=== PATIENT | male | born 1975 | race Caucasian/White ===

== ENCOUNTER 2023-04-27 10:23 | Outpatient (CLI) | payer BC, SELFPAY ==
--- NOTE | ~2023-04-27 | XR_ITS ---
Right elbow Technique: AP, oblique, and lateral views were obtained. Clinical History: Pain Findings: No acute fracture or dislocation is seen. Osseous alignment is anatomic. Joint spaces are p reserved. There is no displacement of the fat pads, and soft tissues are unremarkable. Impression: Unremarkable radiographs. Reviewed, dictated and finalized at [facility]. AGE SECURITY CHECKER Impression: Unremarkable radiographs.
== END 2023-04-27 10:24 | disposition home or self-care (01) ==
PROVIDERS: Visit Provider Orthopaedic Surgery
DX: M25.521 Pain in right elbow (principal)
CPT/HCPCS: 73080

== ENCOUNTER 2023-05-30 08:44 | Outpatient (CLI) | payer BC, SELFPAY ==
--- NOTE | 2023-05-30 10:00 | NEURO_ITS ---
Report of EMG and nerve conduction study on right upper limb Clinical note: The patient is 47 years old with history of paresthesias in the right upper limb. No history of diabetes mellitus. No history of recent major trauma. On brief neurological examination no focal muscle wasting or weakness or fasciculations are seen in right upper limb. Summary of findings: 1. Right median palmar sensory distal latency was normal however mildly prolonged compared to right ulnar palmar sensory distal latency. Right median and ulnar digital and right radial sensory distal latencies and amplitudes were within acceptable normal limits. 2. Right median motor distal latency amplitude and conduction velocity were within acceptable normal limits. 3. Right ulnar motor distal latency amplitude and conduction velocity were within acceptable normal limits. 4. Right median and ulnar motor studies were also performed while recording over the 2nd lumbrical and interossei. Motor latencies were comparable and within normal limits. 5. EMG examination was performed using a monopolar electrode. Various muscles examined in the right upper limb in C5-T1 distribution. No denervation changes were seen. motor unit recruitment was within acceptable normal limits. Impression: EMG and nerve study of the upper limbs raise possibility of minimal right carpal tunnel syndrome. Right median palmar sensory distal latency was borderline prolonged compared to right ulnar palmar distal latency. Remainder of the findings are within normal limits. Please feel free to call me if you have any questions with regard to study. Dorene Chapin MD, FAAN, FAANEM Neurologist Nerve Conduction Studies Anti Sensory Summary Table Stim Site NR Peak (ms) P-T Amp (?V) Site1 Site2 Delta-P (ms) Dist (mm) Dale (m/s) Right Median Anti Sensory (2 Digit) Wrist 3.7 33.7 Wrist 2 Digit 3.7 155 42 Wrist 2 Digit 3.7 0 Right Radial Anti Sensory (Base 1st Digit) Wrist 1.7 42.0 Wrist Base 1st Digit 1.7 0 Right Ulnar Anti Sensory (5th Digit) Wrist 3.3 17.7 Wrist 5th Digit 3.3 140 42 Motor Summary Table Stim Site NR Onset (ms) O-P Amp (mV) Site1 Site2 Delta-0 (ms) Dist (mm) Dale (m/s) Right Median Motor (Abd Poll Brev) Wrist 4.2 6.6 Wrist Elbow 4.2 245 58 Elbow 8.4 5.2 Wrist 3.2 1.2 Right Ulnar Motor (Abd Dig Minimi) Wrist 2.8 5.6 B Elbow Wrist 3.7 230 62 B Elbow 6.5 5.3 A Elbow B Elbow 1.5 75 50 A Elbow 8.0 5.3 Right Ulnar Motor Run #2 (interossei-2) Wrist 3.2 2.9 Comparison Summary Table Stim Site NR Peak (ms) P-T Amp (?V) Site1 Site2 Dale (m/s) Dist (mm) Right Median/Ulnar Palm Comparison Run #2 (Wrist - 8cm) Median Palm 2.1 50.5 Median Palm Wrist - 8cm 38 80 Ulnar Palm 1.7 19.0 Ulnar Palm Wrist - 8cm 47 80 EMG Side Muscle Nerve Ins Act Fibs Psw Amp Dur Recrt Comment Right 1stDorInt Ulnar Nml Nml Nml Nml Nml Nml Right Abd Poll Brev Median Nml Nml Nml Nml Nml Nml Right Ext dig comm Radial (Post Int) Nml Nml Nml Nml Nml Nml Right Ext.indicis Median Nml Nml Nml Nml Nml Nml Right FlexPolLong Median (Ant Int) Nml Nml Nml Nml Nml Nml Right FlexDigProf Ulnar Nml Nml Nml Nml Nml Nml Right Biceps Musculocut Nml Nml Nml Nml Nml Nml Right Triceps Radial Nml Nml Nml Nml Nml Nml Right Deltoid Axillary Nml Nml Nml Nml Nml Nml MTDD
== END 2023-05-30 08:45 | disposition home or self-care (01) ==
PROVIDERS: Visit Provider Orthopaedic Surgery
DX: M77.11 Lateral epicondylitis, right elbow (principal); M25.521 Pain in right elbow; R20.2 Paresthesia of skin
CPT/HCPCS: 95886; 95909

== ENCOUNTER 2024-08-22 15:13 | Outpatient (CLI) | payer BC, SELFPAY ==
--- NOTE | ~2024-08-22 | XR_ITS ---
XR ribs RT 2V Ordering provider: Kevin Guerra History: . RIB PAIN, CHIROPRACTOR ADJUSTMENT YESTERDAY, PAIN PA AND AP . Comparison: None. FINDINGS: BONES: No acute right rib fracture or fracture of the visualized osseous structures. LUNGS: No effusions or infiltrates. No pneumothorax. SOFT TISSUES: Normal. IMPRESSION: No right rib fracture (Note: subtle/nondisplaced rib fractures can be occult on plain films and if th ere is continued clinical suspicion for rib fracture, recommend follow up CT chest). Reviewed, dictated and finalized at location A. IMPRESSION: No right rib fracture (Note: subtle/nondisplaced rib fractures can be occult on plain films and if there is continued clinical suspicion for rib fracture, rec ommend follow up CT chest).
--- OUTSIDE RECORDS SUMMARY | 2024-08-22 15:22 | XMS_ITS | Clinical Summary ---
Author Organization [facility] Address [address] [place] [address] Care Team Providers Care Television Schedule Coordinator Name Role Phone Kevin Guerra Primary Care Provider [phone] Allergies Active Allergy Reactions Criticality Noted Date Comments Penicillins Nausea and Vomiting 07/04/2023 Medications amLODIPine (NORVASC) 10 MG tablet Take 1 tablet (10 mg total) by mouth daily. Active montelukast (SINGULAIR) 10 MG tablet Take 1 tablet (10 mg total) by mouth nightly at bedtime. Active rosuvastatin (CRESTOR) 10 MG tablet Take 1 tablet (10 mg total) by mouth nightly at bedtime. Active levothyroxine (SYNTHROID) 150 MCG tablet Take 1 tablet (150 mcg total) by mouth every morning. Active buPROPion XL (WELLBUTRIN XL) 300 MG 24 hr tablet Take 1 tablet (300 mg total) by mouth daily. Active omeprazole (PRILOSEC) 20 MG capsule take 1 capsule by mouth every day for 90 days Active Active Problems Problem Noted Date Diagnosed Date Gastroesophageal reflux dise ase, unspecified whether esophagitis present 07/04/2023 Chronic diarrhea 07/04/2023 Hematochezia 07/04/2023 Lower abdominal pain 07/04/2023 LLQ abdominal pain 07/04/2023 Resolved Problems Problem Noted Date Diagnosed Date Resolved Date Screening for colon cancer 07/04/2023 0 07/11/2023 Screening for colon cancer 07/04/2023 0 08/22/2023 Social History Tobacco Use Types Packs/Day Years Used Date Smoking Tobacco: Never Passive Smoke Exposure: Never Smokeless Tobacco: Never Tobacco Cessation:Counseling Given: No Alcohol Use Standard Drinks/Week Comments Not Asked 0 (1 standard drink = 0.6 oz pur e alcohol) rare PHQ-2 Answer Date Recorded Patient Health Questionnaire-2 Score 0 07/04/2023 Sex and Gender Information Value Date Recorded Sex Assigned at Male 08/17/2023 12:03 PM CDT Legal Sex Male 1:53 PM SENIOR CONTRACTS ADMINISTRATOR Gender Identity Male 08/17/2023 12:03 PM CDT Sexual Orientation Straight 08/17/2023 12 :03 PM CDT Last Filed Vital Signs Vital Sign Reading Time Taken Comments Blood Pressure 122/72 09/01/2023 11:10 AM CDT Pulse 82 09/01/2023 11:10 AM CDT Temperature 37.1 C (98.8 F) 09/01/2023 10:51 AM CDT Respiratory Rate 18 09/01/2023 11:10 AM CDT Oxygen Saturation 94% 09/01/2023 11:10 AM CDT Inhaled Oxygen Concentration - - Weight 117.9 kg (260 lb) 08/19/2023 2:16 PM CDT Height 180.3 cm (5' 11) 08/19/2023 2:16 PM CDT Body Mass Index 36.26 08/19/2023 2:16 PM CDT Plan of Treatment Health Maintenance Due Date Last Done Comments Annual Physical 1976 Hepatitis C 10/02/1991 Hepatitis B Vaccines (1 of 3 - 19+ 3-dose series) 1992 Pneumococcal Vaccine: 50+ Years (1 of 1 - PCV) 10/02/2023 Zoster Vaccines (1 of 2) 10/02/2023 COVID-19 Vaccine (1 - 2023-2 5 season) 2023 PHQ-2 (Physician [place]) 02/22/2024 07/04/2023 DTaP, Tdap and Td Vaccines ( 2 - Td or Tdap) 06/21/2027 06/20/2017 Colorectal Cancer Screening Colonoscopy (10 Years) 08/31/2033 09/01/2023, 09/01/2023 Meningococcal B Vaccine Aged Out No l onger eligible based on patient's age to complete this topic Meningococcal Vaccine Aged Out No marialuisa susan eligible based on patient's age to complete this topic RSV Immunizations Under 20 Months Aged Out No longer eligible b ased on patient's age to complete this topic Procedures Procedure Name Priority Date/Time Associated Diagnosis Comments COLONOSCOPY Routine 09/01/2023 11:02 AM CDT from Last 3 Months or Most Recently Relevant to Health Maintenance Insurance [facility] Care Teams Television Schedule Coordinator Relationship Specialty Start Date End Date Kevin Guerra DO [address] [place] [id number] PCP - General FAMILY PRACTICE 04/11/23
--- OUTSIDE RECORDS SUMMARY | 2024-08-22 15:22 | XMS_ITS | Encounter Summary ---
Author Organization [facility] Address [facility] [facility] [place] [address] Care Team Providers Care Other Sports Official Name Role Phone Unavailable Primary Care Provider Unavailabl e Encounter Details Date Type Department Care Team (Late st Contact Info) Description 03/31/2021 Lab Requisition [facility] [address] [place] [address] Marilou Gutierrez MD [address] [place] [address] Illness, unspecified Social History Tobacco Use Types Packs/Day Years Used Date Smoking Tobacco: Never Smokeless Tobacco: Never Alcohol Use Standard Drinks/Week Comments Yes 0 (1 standard drink = 0.6 oz pur e alcohol) OCC Sex and Gender Information Value Date Recorded Sex Assigned at Not on file Legal Sex Male 10:00 AM CDT Gender Identity Male 05/19/2017 12:15 PM CDT Sexual Orientation Not on file documented as of this encounter Plan of Treatment Not on file documented as of this encounter Procedures Procedure Name Priority Date/Time Associated Diagnosis Comments PATH CONSULT ON REFERRED CASE Routine 03/27/2021 12:23 PM SENIOR IT ARCHITECT Illness, unspecified documented in this encounter Results * PATH CONSULT ON REFERRED CASE (03/27/2021 12:23 PM SENIOR IT ARCHITECT) Final Diagnosis VAS DEFERENS, RIGHT, VASECTOMY ([id number], A; 03/27/2021): - Complete transection of the lumen VAS DEFERENS, LEFT, VASECTOMY ([id number], B; 03/27/2021): - Complete transection of the lumen 04/01/2021 10:58 AM [facility] at [address] SENIOR IT ARCHITECT Microscopic Description and Comment Both vasa (A, B) are unremarkable and have complete transection of the lumen. 04/01/2021 10:58 AM [facility] Clinical History STERILIZATION 04/01/2021 10:58 AM [facility] Materials Received One H and E stained prepared slide (A) received from Urology [facility] [id number]. All material will be returned. 04/01/2021 10:58 AM [facility] Disclaimer The performance characteristics of all immunohistochemical and indirect immunofluorescence stains (if any) cited in this report were determined by the Histopathology Laboratory of [facility]. Some of these tests were developed by our own laboratory and have not been cleared or approved by the US Food and Drug Administration. The FDA does not require this test to go through premarket FDA review. These tests are used for clinical purposes. They should not be regarded as investigational or for research. This laboratory is certified under the Clinical Laboratory Improvement Amendments (CLIA) as qualified to perform high complexity clinical laboratory testing. This case has been personally reviewed and interpreted by the attending (teaching) pathologist. 04/01/2021 10:58 AM [facility] Case Report Surgical Pathology Report Case: [id number] Authorizing Provider: Marilou Gutierrez MD Collected: 03/27/2021 12:23 PM Ordering Location: [facility] Received: 03/31/2021 12:23 PM Pathologist: Melody Del Rio MD Specimen: Slide Consultation 04/01/2021 10:58 AM [facility] Embedded Images 04/01/2021 10:58 AM [facility] Pathology/Cytolo gy SURGICAL PATHOLOGY CONSULTATION AND REPORT ON REFERRED SLIDES PREPARED ELSEWHERE / Unknown 03/27/2021 12:23 PM SENIOR IT ARCHITECT 03/31/2021 12:23 PM SENIOR IT ARCHITECT us Marilou Gutierrez MD LAB - PATHOLOGY/CYTOLOGY ORDERAB LES Final Result [facility] [address] [place], [place] [id number] [place] [address] documented in this encounter Visit Diagnoses Diagnosis Illness, unspecified documented in this encounter
--- OUTSIDE RECORDS SUMMARY | 2024-08-22 15:22 | XMS_ITS | Clinical Summary ---
Author Organization [facility] Address [address] [place] [address] Care Team Providers Care Communications Executive Name Role Phone Ravinder Daily MD Primary Care Provider Unavai lable Allergies Active Allergy Reactions Criticality Noted Date Comments Amoxicillin-Pot Clavulanate 09/23/19 05 Medications meclizine (ANTIVERT) 25 mg Oral TabIndications:D izziness and giddiness Take 1 Tab by mouth 3 times daily as needed for Dizziness. 30 Tab 0 02/03/2009 Active azithromycin (ZITHROMAX) 250 mg Oral tabletIndication s:Acute sinusitis Take by mouth. Take 2 tabs the first day and 1 tab days 2-5 1 Package 0 05/22/2009 Active Active Problems Problem Noted Date Diagnosed Date Headache(784.0) 02/03/2009 Dizziness and giddiness 02/03/2009 Acute bronchitis 09/15/2004 Family History Medical History Relation Name Comments Healthy Father Healthy Mother Relation Name Status Comments Father Alive Mother Alive Social History Tobacco Use Types Packs/Day Years Used Date Smoking Tobacco: Never Alcohol Use Standard Drinks/Week Comments No 0 (1 standard drink = 0.6 oz pur e alcohol) Sex and Gender Information Value Date Recorded Sex Assigned at Not on file Legal Sex Male 4:29 AM CAFETERIA MANAGER Gender Identity Not on file Sexual Orientation Not on file Last Filed Vital Signs Vital Sign Reading Time Taken Comments Blood Pressure 108/88 02/03/2009 10:00 AM CAFETERIA MANAGER Pulse - - Temperature 37.2 C (98.9 F) 02/03/2009 10:00 AM CAFETERIA MANAGER Respiratory Rate - - Oxygen Saturation - - Inhaled Oxygen Concentration - - Weight 105.2 kg (232 lb) 02/03/2009 10:00 AM CAFETERIA MANAGER Height - - Body Mass Index - - Plan of Treatment Health Maintenance Due Date Last Done Comments DTAP/TDAP/TD VACCINES (1 - Tdap) 1992 HEPATITIS B VACCINES (1 of 3 - 19+ 3-dose series) 09/21 COLORECTAL SCREENING 2018 Colorectal Cancer Screening 2018 FIT-DNA Q 3 years 2018 FIT/FOBT Q 1 year 2018 Flex Sig/CT Colonography Q 5 years 2018 INFLUENZA VACCINE (#1) 2023 ZOSTER VACCINE (1 of 2) 10/02/2023 Insurance [facility] BLUE ACCESS/TRUE BLUE PPO Care Teams Communications Executive Relationship Specialty Start Date End Date Ravinder Daily MD PCP - General 08/21/06
--- OUTSIDE RECORDS SUMMARY | 2024-08-22 15:23 | XMS_ITS | Clinical Summary ---
Author Organization [facility] Address [address] [facility] [place] [address] Care Team Providers Care Uc Architect Name Role Phone Unavailable Primary Care Provider Unavailabl e Source Comments [facility],non-owned Affiliates and Associated Physician Practices is amultiple site organization consisting of ambulatory clinics and hospital sitesin [place], [place], [place] and [place]. This disclosure is being madepursuant to the Care Everywhere program and may not contain all information available regarding this patient. Last updated 17.[facility] Allergies Active Allergy Reactions Criticality Noted Date Comments Penicillins Nausea and/or Vomiting 08/27/2016 Medications * Be aware that medications may not be up to date on this document. Alwaysverify current medications with the patient. rosuvastatin (CRESTOR) 10 MG tablet Take 10 mg by mouth once daily Active omeprazole (PRILOSEC) 20 MG capsule Take 20 mg by mouth daily before breakfast Active levothyroxine (SYNTHROID) 175 MCG tablet Take 175 mcg by mouth daily before breakfast Active montelukast (SINGULAIR) 10 MG tablet Take 10 mg by mouth at bedtime Active BUPROPION HBR ER PO Active amLODIPine-christophe zepril (LOTREL) 10-20 MG capsule Take 1 capsule by mouth once daily Active Social History Tobacco Use Types Packs/Day Years Used Date Smoking Tobacco: Never Smokeless Tobacco: Never Alcohol Use Standard Drinks/Week Comments Yes 0 (1 standard drink = 0.6 oz pur e alcohol) OCC Sex and Gender Information Value Date Recorded Sex Assigned at Not on file Legal Sex Male 10:00 AM CDT Gender Identity Male 05/19/2017 12:15 PM CDT Sexual Orientation Not on file Last Filed Vital Signs Vital Sign Reading Time Taken Comments Blood Pressure 112/80 08/25/2018 12:05 PM CDT Pulse 78 08/25/2018 12:05 PM CDT Temperature 36.9 C (98.5 F) 08/25/2018 12:05 PM CDT Respiratory Rate 16 08/25/2018 12:05 PM CDT Oxygen Saturation 96% 08/25/2018 12:05 PM CDT Inhaled Oxygen Concentration - - Weight 108.9 kg (240 lb) 08/25/2018 12:05 PM CDT Height 177.8 cm (5' 10) 08/25/2018 12:05 PM CDT Body Mass Index 34.44 08/25/2018 12:05 PM CDT Plan of Treatment Health Maintenance Due Date Last Done Comments COLOGUARD (AGES 45-75) - COL ON CA SCREENING 1973 COLON MONITORING 1973 COLONOSCOPY - COLON CA SCREENING 1973 CT COLONOGRAPHY - COLON CA SCREENING 1973 Colorectal Cancer Screening 1973 FIT - COLON CA SCREENING 1973 FLEX SIG - COLON CA SCREENING 1973 HIV SCREENING 1988 HEPATITIS C SCREENING 09/27/1991 DTAP/TDAP/TD VACCINES (1 - Tdap) 1992 HEPATITIS B VACCINE (1 of 3 - 19+ 3-dose series) 1992 SCREENING FOR DIABETES 05/19/2017 PNEUMOCOCCAL VACCINE 50+ (1 of 1 - PCV) 10/02/2023 ZOSTER VACCINE (1 of 2) 10/02/2023 COVID-19 VACCINE (1 - 2023-2 5 season) 2023 DEPRESSION SCREENING 02/22/2024 INFLUENZA VACCINE (Season Ended) 2024 HIB VACCINE Aged Out No longer eligi ble based on patient's age to complete this topic HPV VACCINE Aged Out No longer eligi ble based on patient's age to complete this topic MENINGOCOCCAL (Group B) VACC INE SHARED DECISION-MAKING Aged Out No longer eligibl e based on patient's age to complete this topic MENINGOCOCCAL GROUPS A/C/Y/W VACCINE Aged Out No longer eligible b ased on patient's age to complete this topic Insurance [employer] Member Subscriber Plan / Payer ( fective 2015-Present) Name:Cain Obrien Relation to Subscriber:Self Name:Cain Obrien Payer ID:[id number] (NAIC) Type:PPO Address: [place] [phone] ANTHE[employer]
--- OUTSIDE RECORDS SUMMARY | 2024-08-22 15:23 | XMS_ITS | Referral Summary ---
Author Organization [facility] Address [address] [place] [address] Care Team Providers Care Academic Counselor Name Role Phone Kevin Guerra DO Primary Care Provider [phone] Cory Cobos MD Unavailable [phone] Encounters Date Type Department Care Team Description 07/11/2024 8:15 AM CDT Office Visit [facility] Hand Surgery [address] [place] [address] [place] [phone] Maikol Ta MD Right lateral epicondylitis (Primary Dx); Carpal tunnel syndrome on right 06/27/2024 7:45 AM CDT Office Visit [facility] Hand Surgery [address] [place] [phone] Maikol Ta MD Right hand pain (Primary Dx); Right elbow pain; Right lateral epicondylitis; Carpal tunnel syndrome on right; Trigger ring finger of right hand; Trigger middle finger of right hand from Last 3 Months Allergies Active Allergy Reactions Criticality Noted Date Comments Methylprednisolone Rash Medium 05/09/2024 Penicillins Nausea only,Vomiting Low 06/20/2017 Medications amLODIPine-christophe zepriL (LOTREL) 10-20 mg per capsule Take by mouth daily 03/30/2020 Active buPROPion XL (WELLBUTRIN XL) 300 mg 24 hr tablet Take 1 tablet (300 mg total) by mouth daily 03/31/2020 Active rosuvastatin (CRESTOR) 10 mg tablet TAKE 1 TABLET BY MOUTH EVERYDAY AT BEDTIME 04/01/2020 Active montelukast (SINGULAIR) 10 mg tablet Take 1 tablet (10 mg total) by mouth daily 03/30/2020 Active omeprazole (PriLOSEC) 20 mg capsule Take 1 capsule (20 mg total) by mouth daily 03/27/2020 Active levothyroxine (SYNTHROID) 150 mcg tablet Take 1 tablet (150 mcg total) by mouth daily 03/01/2020 Active amLODIPine (NORVASC) 10 mg tablet Take 1 tablet (10 mg total) by mouth daily Active traMADoL (ULTRAM) 50 mg tablet Take 1 tablet (50 mg total) by mouth every 6 (six) hours for 15 doses 15 tablet 02/09/2024 Active Active Problems Problem Noted Date Diagnosed Date Right lateral epicondylitis 12/30/2023 Carpal tunnel syndrome on right 12/30/2023 Trigger ring finger of right hand 12/30/2023 Trigger middle finger of right hand 12/30/2023 Gastroesophageal reflux disease 07/04/2023 Chronic diarrhea 07/04/2023 Hematochezia 07/04/2023 Abdominal pain 05/07/2020 Dizziness and giddiness 02/03/2009 Acute bronchitis 09/15/2004 Immunizations Immunization Administration Dates Next Due Tdap 06/20/2017 Social History Tobacco Use Types Packs/Day Years Used Date Smoking Tobacco: Never Passive Smoke Exposure: Past Smokeless Tobacco: Never Tobacco Cessation:Counseling Given: Not Answered AUDIT-C Answer Date Recorded Q1: How often do you have a drink containing alc ohol? 2-4 times a month 02/01/2024 Q2: How many drinks containi ng alcohol do you have on a typical day when you are drinking? 1 or 2 02/01/2024 Q3: How often do you have si x or more drinks on one occasion? Never 02/01/2024 Personal Safety Answer Date Recorded Have you ever been in or are you currently in a harmful physical or emotional relationship or is someone making you feel afraid or unsafe? Denies 02/09/2024 Sex and Gender Information Value Date Recorded Sex Assigned at Not on file Legal Sex Male 10:52 PM CDT Gender Identity Male 01/18/2024 8:08 AM AUTOMATED TELLER MANAGER Sexual Orientation Not on file Last Filed Vital Signs Vital Sign Reading Time Taken Comments Blood Pressure 135/92 02/09/2024 2:00 PM AUTOMATED TELLER MANAGER Pulse 67 02/09/2024 2:00 PM AUTOMATED TELLER MANAGER Temperature 36.8 C (98.2 F) 02/09/2024 1:00 PM AUTOMATED TELLER MANAGER Respiratory Rate 18 02/09/2024 2:00 PM AUTOMATED TELLER MANAGER Oxygen Saturation 98% 02/09/2024 2:00 PM AUTOMATED TELLER MANAGER Inhaled Oxygen Concentration - - Weight 126.5 kg (278 lb 14.4 oz) 02/09/2024 8:08 AM AUTOMATED TELLER MANAGER Height 180.3 cm (5' 11) 02/09/2024 8:08 AM AUTOMATED TELLER MANAGER Body Mass Index 38.9 02/09/2024 8:08 AM AUTOMATED TELLER MANAGER Plan of Treatment Not on file Medical Devices Implanted Type Area Data Operations Leader Device Identifier Shelf Expiration Date Model / Serial / Lot [employer] Suturetak Tigerwire 3mm 14.5mm 2 Bells Suture Fiberwire [id number] - [id number] Implanted:Qty: 1 on 02/09/2024 by Maikol Ta MD at [facility] Right: Elbow [employer] [id number] 05/21/2026 [id number] / / [id number] Insurance [employer] PREFERRED AN[employer]M ACCESS Care Teams Academic Counselor Relationship Specialty Start Date End Date Kevin Guerra DO [address] [place] [id number] PCP - General Family Medicine 04/30/20 Cory Cobos MD [address] [place] [id number] Surgeon General Surgery 04/30/20
--- OUTSIDE RECORDS SUMMARY | 2024-08-22 15:23 | XMS_ITS | Encounter Summary ---
Author Organization [employer] Address [address] [place] [address] Care Team Providers Care Facility Manager Name Role Phone Ravinder Daily MD Primary Care Provider Isi blair Encounter Details Date Type Department Care Team (Late st Contact Info) Description 08/21/2006 Outpatient Historical [facility] Erika Benson MD [address] [place] [address] Unspecified Sinusitis (Chronic) (Primary Dx) Social History Tobacco Use Types Packs/Day Years Used Date Smoking Tobacco: Never Assessed Sex and Gender Information Value Date Recorded Sex Assigned at Not on file Legal Sex Male 4:29 AM WORD PROCESSOR TECHNICIAN Gender Identity Not on file Sexual Orientation Not on file documented as of this encounter Plan of Treatment Not on file documented as of this encounter Visit Diagnoses Diagnosis Unspecified sinusitis (chronic)- Primary documented in this encounter Care Teams Facility Manager Relationship Specialty Start Date End Date Ravinder Daily MD PCP - General 08/21/06 documented as of this encounter
--- OUTSIDE RECORDS SUMMARY | 2024-08-22 15:23 | XMS_ITS | Clinical Summary ---
Author Organization [facility] Address [address] [place] [address] Care Team Providers Care Security Guards Dispatcher Name Role Phone Kevin Guerra DO Primary Care Provider [phone] Cory Cobos MD Unavailable [phone] Allergies Active Allergy Reactions Criticality Noted Date [...] Dizziness and giddiness 02/03/2009 Acute bronchitis 09/15/2004 Encounters Date Type Department Care Team Description 07/11/2024 8:15 AM CDT Office Visit [facility] Hand Surgery [address] [place] [phone] Maikol Ta MD Right lateral epicondylitis (Primary Dx); Carpal tunnel syndrome on right 06/27/2024 7:45 AM CDT Office Visit [facility] [address] [place] [phone] Maikol Ta MD Right hand pain (Primary Dx); Right elbow pain; Right lateral epicondylitis; Carpal tunnel syndrome on right; Trigger ring finger of right hand; Trigger middle finger of right hand from Last 3 Months Immunizations Immunization Administration Dates Next Due Tdap 06/20/2017 Surgical History Surgery Date Site/Laterality Comments TONSILLECTOMY age 22 KIDNEY STONE SURGERY 02/21/2023 - 02/21/2024 patient states there was no kidney stone COLONOSCOPY 02/21/2023 - 02/21/2024 ESOPHAGOSCOPY / EGD 02/21/2023 - 02/21/2024 ELBOW DEBRIDEMENT 02/09/2024 Right CARPAL TUNNEL RELEASE 02/09/2024 Right TRIGGER FINGER RELEASE 02/09/2024 Right LONG, RING AND SMALL Medical History Medical History Date Comments Hypertension Hypercholesteremia Hypothyroidism Sleep apnea no cpap Allergic rhinitis Family History Relation Name Status Comments Brother Father Alive Mother Alive Sister Alive Social History Tobacco Use Types Packs/Day [...] CDT Gender Identity Male 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 Sexual Orientation Not on file Obstetrics History Last Filed Vital Signs Vital Sign Reading Time Taken Comments Blood Pressure 135/92 02/09/2024 2:00 PM ASSEMBLER TRUCK TRAILER Pulse 67 02/09/2024 2:00 PM ASSEMBLER TRUCK TRAILER Temperature 36.8 C (98.2 F) 02/09/2024 1:00 PM ASSEMBLER TRUCK TRAILER Respiratory Rate 18 02/09/2024 2:00 PM ASSEMBLER TRUCK TRAILER Oxygen Saturation 98% 02/09/2024 2:00 PM ASSEMBLER TRUCK TRAILER Inhaled Oxygen Concentration - - Weight 126.5 kg (278 lb 14.4 oz) 02/09/2024 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 Height 180.3 cm (5' 11) 02/09/2024 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 Body Mass Index 38.9 02/09/2024 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 Plan of Treatment Health Maintenance Due Date Last Done Comments Colon Cancer Screening-Colonoscopy 1973 Depression Screening 1973 Hepatitis C Screening 1973 Prostate Cancer Screening-PSA 1973 Hepatitis B Screening 10/02/1991 Regular Well Visit/Exam 18-64 10/02/1991 Zoster Vaccine (1 of 2) 10/02/2023 Covid-19 Vaccine (3 - 2023-2 5 season) 2023 06/06/2020, 05/15/2020 Influenza Vaccine (Season Ended) 2024 DTaP/Tdap/Td Vaccine (2 - Td or Tdap) 06/21/2027 06/20/2017 Pneumococcal vaccine <65 Aged Out No longer eligible based on patient's age to complete this topic Medical Devices Implanted Type Area Farmworker [employer] Device Identifier Shelf Expiration Date Model / Serial / Lot [employer] Suturetak Tigerwire 3mm 14.5mm 2 [employer] Suture Fiberwire [id number] - [id number] Implanted:Qty: 1 on 02/09/2024 by Maikol Ta MD at [facility] Right: Elbow [employer] [id number] 05/21/2026 [id number] / / [id number] [place] [phone] ANTHEM PREFERRED ANTHEM ACCESS Care Teams Security Guards Dispatcher Relationship Specialty Start Date End Date Kevin Guerra DO [address] [place] [id number] PCP - General Family Medicine 04/30/20 Cory Cobos MD [address] [place] [id number] Surgeon General Surgery 04/30/20
--- OUTSIDE RECORDS SUMMARY | 2024-08-22 15:23 | XMS_ITS | Encounter Summary ---
Author Organization [facility] Address 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 Gender Identity Not on file Sexual Orientation Not on file documented as of this encounter Last Filed Vital Signs Vital Sign Reading Time Taken Comments Blood Pressure 130/80 09/15/2004 4:15 PM CDT Pulse - - Temperature 36.9 C (98.5 F) 09/15/2004 4:15 PM CDT Respiratory Rate - - Oxygen Saturation - - Inhaled Oxygen Concentration - - Weight 103 kg (227 lb) 09/15/2004 4:15 PM CDT Height - - Body Mass Index - - documented in this encounter Plan of Treatment Not on file documented as of this encounter Visit Diagnoses Not on filedocumented in this encounter Care Teams Advanced Manufacturing Engineer Relationship Specialty Start Date End Date Ravinder Daily MD PCP - General 08/21/06 documented as of this encounter
== END 2024-08-22 15:14 | disposition home or self-care (01) ==
DX: R07.81 Pleurodynia (principal)
CPT/HCPCS: 71100